=== PATIENT | female | born 1985 | race American Indian/Alaskan Native ===

== ENCOUNTER 2019-01-17 09:20 | Emergency (ER) | payer SELFPAY ==
[2019-01-17] MEDS ORDERED: NACL 0.9% 1000 ML 1,000 ML ONE (09:47)
--- NOTE | 2019-01-17 09:58 | Emergency Department Report ---
ED General Adult HPI - General Chief complaint: Syncope Stated complaint: SYNCOPE Time Seen by Provider: 01/17/19 09:55 Source: EMS Mode of arrival: Stretcher Limitations: No Limitations - History of Present Illness Initial comments: 33-year-old female with no past medical history presents with a complaint of having a syncopal episode while at work today. Patient states that she was inside her job working at a [employer] and had a syncopal episode. Patient states that she has had no prior episodes of syncope. Patient denies any seizure activity. Patient states that after the syncope episode however she complained of a headache as well as chest pain. Patient denies any vomiting or diarrhea. Patient has had no fever. Patient denies any urinary incontinence. Patient denies pain in her neck region. Patient has had no recent long trips or history of PE or DVT. - Related Data Allergies Allergy/AdvReac Type Severity Reaction Status Date / Time No Known Allergies Allergy Unverified 01/17/19 09:23 ED Review of Systems ROS: Stated complaint: SYNCOPE Other details as noted in HPI Constitutional: denies: chills, fever Eyes: denies: eye pain, eye discharge, vision change ENT: denies: ear pain, throat pain Respiratory: denies: cough, shortness of breath, wheezing Cardiovascular: denies: chest pain, palpitations Endocrine: no symptoms reported Gastrointestinal: denies: abdominal pain, nausea, diarrhea Genitourinary: denies: urgency, dysuria, discharge Musculoskeletal: denies: back pain, joint swelling, arthralgia Skin: denies: rash, lesions Neurological: other (dizziness) Psychiatric: denies: anxiety, depression Hematological/Lymphatic: denies: easy bleeding, easy bruising ED Past Medical Hx - Past Medical History Previous Medical History?: No - Surgical History Past Surgical History?: Yes Additional Surgical History: - Social History Smoking Status: Current Every Day Smoker Substance Use Type: None ED Physical Exam - General Limitations: No Limitations General appearance: alert, other (mildly uncomfortable;) - Head Head exam: Present: atraumatic, normocephalic - Eye Eye exam: Present: normal appearance - ENT ENT exam: Present: mucous membranes moist - Neck Neck exam: Present: normal inspection - Respiratory Respiratory exam: Present: normal lung sounds bilaterally. Absent: respiratory distress - Cardiovascular Cardiovascular Exam: Present: regular rate, normal rhythm. Absent: systolic murmur, diastolic murmur, rubs, gallop - GI/Abdominal GI/Abdominal exam: Present: soft, normal bowel sounds - Extremities Exam Extremities exam: Present: normal inspection - Back Exam Back exam: Present: normal inspection - Neurological Exam Neurological exam: Present: alert, oriented X3, CN II-XII intact. Absent: motor sensory deficit - Psychiatric Psychiatric exam: Present: normal affect, normal mood - Skin Skin exam: Present: warm, dry, intact, normal color. Absent: rash ED Course Vital Signs 01/17/19 01/17/19 01/17/19 09:25 09:30 09:45 Temperature 98.4 F Pulse Rate 81 84 68 Respiratory 18 14 12 Rate Blood Pressure 138/78 135/75 125/65 O2 Sat by Pulse 100 100 100 Oximetry 01/17/19 01/17/19 01/17/19 10:00 10:15 10:30 Temperature Pulse Rate 65 65 51 L Respiratory 20 17 16 Rate Blood Pressure 114/67 124/76 112/62 O2 Sat by Pulse 100 100 100 Oximetry 01/17/19 01/17/19 01/17/19 10:45 11:00 11:15 Temperature Pulse Rate 53 L 50 L 50 L Respiratory 15 18 19 Rate Blood Pressure 117/62 108/52 100/48 O2 Sat by Pulse 100 100 100 Oximetry ED Medical Decision Making - Lab Data Result diagrams: 01/17/19 11:48 01/17/19 10:24 - EKG Data EKG shows normal: sinus rhythm - EKG Data Interpretation: other (T wave flattening noted in leads v5 and V6; T wave flattening noted in leads I and AVL) - Differential Diagnosis intracranial bleed; STEMI; NSTEMI; electrolyte abnormality; anemia; Pneumon Critical care attestation.: If time is entered above; I have spent that time in minutes in the direct care of this critically ill patient, excluding procedure time. ED Disposition Clinical Impression: Syncope Disposition: DC-01 TO HOME OR SELFCARE Is pt being admited?: No Does the pt Need Aspirin: No Condition: Stable Instructions: Syncope (ED) Referrals: JLUIS JESUS MD [Primary Care Provider] - 3-5 Days Time of Disposition: 13:07 Print Language: THAI
[2019-01-17] MEDS ORDERED: NACL 0.9% 1000 ML 1,000 ML IV ONE (10:03)
[2019-01-17 10:43] LABS: HCG Qualitative,Urine Negative (Negative)
[2019-01-17 10:45] LABS: Bilirubin,Urine NEG (Negative); Blood,Urine NEG (Negative); Color,Urine Straw (Yellow); Protein,Urine <15 mg/dL mg/dL (Negative); Urobilinogen,Urine < 2.0 mg/dL (<2.0); WBC,Urine < 1.0 /HPF (0.0-6.0)
[2019-01-17 10:48] LABS: RBC,Urine < 1.0 /HPF (0.0-6.0)
[2019-01-17 11:20] LABS: Alanine Aminotransferase 7 units/L (7-56); Albumin 4.2 g/dL (3.9-5); BUN/Creatinine Ratio 7; Blood Urea Nitrogen 6 mg/dL (7-17); Calcium 8.8 mg/dL (8.4-10.2); Hemolysis Index 1
--- NOTE | 2019-01-17 11:40 | XRay Report ---
CHEST 1 VIEW 01/17/2019 10:09 AM INDICATION / CLINICAL INFORMATION: chest pain. COMPARISON: None available. FINDINGS: SUPPORT DEVICES: None. HEART / MEDIASTINUM: No significant abnormality. LUNGS / PLEURA: No significant pulmonary or pleural abnormality. No pneumothorax. ADDITIONAL FINDINGS: No significant additional findings. IMPRESSION: 1. No acute abnormality of the chest. Signer Name: Felice Don MD Signed: 01/17/2019 11:35 AM Workstation Name: [id number]
--- NOTE | 2019-01-17 12:07 | Cat Scan Report ---
CT head without contrast INDICATION : syncope with head trauma. TECHNIQUE: Axial imaging performed from the skull apex through the skull base without the use of con trast. All CT scans at this location are performed using CT dose reduction for ALARA by means of aut omated exposure control. COMPARISON: None FINDINGS: Parenchyma: Normal. No abnormal density. Ventricles: Ventricles are normal in size and appear symmetric. Soft tissues: Soft tissues including the orbits appear normal. Bones: No acute osseous abnormality. Sinuses: Sinuses and mastoid air cells are clear. IMPRESSION: Normal head CT. Signer Name: Maurice Stark MD Signed: 01/17/2019 12:02 PM Workstation Name: [id number]
[2019-01-17 12:36] LABS: Hematocrit 33.9 % (30.3-42.9); Hemoglobin 11.1 gm/dl (10.1-14.3); Mean Corpuscular HGB Conc 33 % (30-34); Mean Corpuscular Volume 85 fl (79-97); Platelet Count 253 K/mm3 (140-440); Red Blood Count 3.97 M/mm3 (3.65-5.03)
[2019-01-17 14:52] VITALS: BP 108/54
== END 2019-01-17 14:51 | disposition home or self-care (01) ==
LOC: ED 09:20
DX: R55 Syncope and collapse (principal); F17.200 Nicotine dependence, unspecified, uncomplicated; Z98.890 Other specified postprocedural states
CPT/HCPCS: 36415; 70450; 71045; 80053; 81001; 81025; 82550; 84484; 85027; 93005; 93010; 99284; J7030